=== PATIENT | female | born 1955 | race Caucasian/White ===

== ENCOUNTER 2016-09-08 06:02 | Emergency (ER) | payer OTHER ==
--- NOTE | 2016-09-08 09:53 | ED ORDER SUMMARY ---
..... Patient: ML DALY OrderSheet [facility] VisitID: [id number] [place] [address] 61y, F Registration Date/Time: 09/08/2016 ORDER SHEET Weight: 105.2 kg Allergies: Dilaudid, Sulfa Drugs GENERAL ORDERS: CBC w Diff Urgent (07:09/08/2016 Lyle Hardy) (Ack 7:16 LNations ER Tech1) (7:28 JSanders R.N.) CMP Urgent (07:09/08/2016 Lyle Hardy) (Ack 7:16 LNations ER Tech1) (7:28 LOLISanders R.N.) UA-Culture if indicated Urgent (07:09/08/2016 Lyle Hardy) (Ack 7:16 LNations ER Tech1) (8:54 LOLISanders R.N.) EKG - ER Stat (09:23 09/08/2016 Kathrine Hardy) (9:29 RKaruga) MEDICATION ORDERS: IV FLUIDS: IV NS : initial bolus none -, then 1000 mL/hr for X1 (NOW) (07:01 09/08/2016 Lyle Hardy) (7:28 Shaun R.N.) Zofran IV 4 mg (NOW) (07:09/08/2016 Lyle Hardy) (7:32 LOLISanders R.N.) Ceftriaxone IV 1 gm/50mL (NOW) (09:23 09/08/2016 Kathrine Hardy) (9:41 JSanders R.N.) ORDER SHEET NOTES: [Electronically signed by Sriram Lara Dr. (10:19 09/08/2016)] [Electronically signed by Yazmin Rome R.N. (10:36 09/08/2016)] [Electronically locked/signed by Yazmin Rome R.N. (10:36 09/08/2016)]
--- NOTE | 2016-09-08 09:53 | ED ORDER SUMMARY ---
..... Patient: ML DALY OrderSheet [facility] VisitID: [id number] [place] [address] 61y, F Registration Date/Time: 09/08/2016 ORDER SHEET Weight: 105.2 kg Allergies: Dilaudid, Sulfa Drugs GENERAL ORDERS: CBC w Diff Urgent (07:09/08/2016 Lyle Hardy) (Ack 7:16 LNations ER Tech1) (7:28 JSanders R.N.) CMP Urgent (07:09/08/2016 Lyle Hardy) (Ack 7:16 LNations ER Tech1) (7:28 LOLISanders R.N.) UA-Culture if indicated Urgent (07:09/08/2016 Lyle Hardy) (Ack 7:16 LNations ER Tech1) (8:54 LOLISanders R.N.) EKG - ER Stat (09:23 09/08/2016 Kathrine Hardy) (9:29 RKaruga) MEDICATION ORDERS: IV FLUIDS: IV NS : initial bolus none -, then 1000 mL/hr for X1 (NOW) (07:01 09/08/2016 Lyle Hardy) (7:28 Shaun R.N.) Zofran IV 4 mg (NOW) (07:09/08/2016 Lyle Hardy) (7:32 LOLISanders R.N.) Ceftriaxone IV 1 gm/50mL (NOW) (09:23 09/08/2016 Kathrine Hrady) (9:41 JSanders R.N.) ORDER SHEET NOTES: [Electronically signed by Sriram Lara Dr. (10:19 09/08/2016)] [Electronically signed by Yazmin Rome R.N. (10:36 09/08/2016)] [Electronically locked/signed by Yazmin Rome R.N. (10:36 09/08/2016)]
--- NOTE | 2016-09-08 09:53 | ED CLINICAL REPORT ---
Clinical Report - Physicians/Mid Levels [facility] [address] [place] [address] 09/08/2016 6:02 Patient: ML DALY Time Seen: 06:26; initial patient contact. Arrived- By private vehicle. Historian- patient. HISTORY OF PRESENT ILLNESS Chief Complaint: NEAR-SYNCOPE. Severity described as moderate at its maximum. When seen in the E.D., severity described as mild. Modifying factors- worsened by standing up and changing position. Relieved by rest. Not described as a sense of rotation, movement, falling or confusion. Not described as feeling off balance or weak all over. Described as feeling light-headed and faint. This started last night and is still present. It was gradual in onset and has been intermittent. The patient has had nausea. No vomiting. Similar symptoms previously: None. Recent medical care: Not recently seen/assessed. REVIEW OF SYSTEMS No headache, double vision, weakness, head injury or chest pain. No palpitations, numbness, sore throat, cough or difficulty breathing. No abdominal pain or diarrhea. No difficulty walking. The patient experienced syncope; and has had fever and chills. All systems otherwise negative, except as recorded above. PAST HISTORY ( Hypertension. Hypercholesterolemia. Diabetes Mellitus. SURGERIES: Cholecystectomy. Hysterectomy.). Medications: ASA Oral. Losartan Potassium Oral. Metformin HCl Oral 500 mg, 2x a day. NovoLog Subcutaneous 15 units over 200, 10 units under 200, 2x a day. Tricor Oral, q day. Allergies: Dilaudid. Sulfa Drugs. SOCIAL HISTORY Never smoker. No alcohol use or drug use. ADDITIONAL NOTES The nursing notes have been reviewed. PHYSICAL EXAM Vital Signs: 09/08/2016 06:10 BP: 179/69. HR: 79. RR: 17. O2 saturation: 98%. Temp: 98.4 F. Pain level now: 0/10. Have been reviewed. Hypertensive. Heart rate normal. Respiratory rate normal. Temperature normal. Oxygen saturation normal. Appearance: Alert. No acute distress. Eyes: Pupils equal, round and reactive to light. No nystagmus. Extraocular movements normal. ENT: Normal ENT inspection. Moist mucous membranes. Neck: Normal inspection. CVS: Normal heart rate and rhythm. Heart sounds normal. Respiratory: No respiratory distress. Breath sounds normal. Abdomen: Soft and nontender. No organomegaly. Obese. Skin: Skin warm and dry. Normal skin color. No rash. Extremities: No calf tenderness. No lower extremity edema. Neuro: Alert. Oriented X 3. Mood/affect normal. Speech normal. Cranial nerves normal (as tested). No cerebellar findings. No motor deficit. LABS, X-RAYS, AND EKG EKG: EKG time: (621). No acute process. No acute ischemia. Normal sinus rhythm. Rate: 73. Normal P waves. Normal ALHAJI. Normal QRS complex. Normal axis. Normal ST and T waves, QT and QTc. EKG unchanged when compared with prior EKG. The study has been interpreted contemporaneously by me. The study has been independently viewed by me. The EKG appears to be a good tracing. Interpretation time: 621. Laboratory Tests: UA-Culture if indicated: (NGOZI: 09/08/2016 08:50) ( [facility] 09/08[facility] 09:19) Final results Test Result Flag Units (Reference) URINE COLOR STRAW URINE APPEARANCE SL CLOUDY URINE GLUCOSE NEGATIVE (NEGATIVE) URINE BILIRUBIN NEGATIVE (NEGATIVE) URINE KETONE NEGATIVE (NEGATIVE) URINE SPECIFIC GRAVITY 1.010 (1.010-1.030) URINE PH 5.5 (5.0-8.0) URINE PROTEIN TRACE (NEGATIVE) URINE UROBILINOGEN 0.2 EU/dL (0.2-1.0) URINE NITRITE NEGATIVE (NEGATIVE) URINE BLOOD 3+ (NEGATIVE) URINE LEUK ESTERASE POSITIVE (NEGATIVE) URINE RBC 10-25 rbc/hpf (0-1) URINE WBC 15-25 wbc/hpf (0-1) URINE EPITHELIAL CELLS 0-1 EPI/hpf (0-5) URINE BACTERIA MODERATE (2+ TO 3+) (NONE SEEN) URINE COMMENT CULTURE INDICATED URINE CULTURES ARE SET-UP BASED ON THE FOLLOWING CRITERIA:POSITIVE NITRITEPOSITIVE LEUKOCYTE ESTERASEGREATER THAN 10 WHITE BLOOD CELLSMODERATE (2+) OR GREATER BACTERIA CBC w Diff: (NGOZI: 09/08/2016 06:15) ( [facility] 09/08/2016 07:14) Final results Test Result Flag Units (Reference) WHITE BLOOD COUNT 7.5 K/uL (4.5-11.5) RED BLOOD COUNT 4.31 M/uL (4.00-5.20) HEMOGLOBIN 11.9 L gm/dL (12.0-16.0) HEMATOCRIT 35.8 L % (36.0-46.0) MEAN CELL VOLUME 83 fL (80-100) MEAN CORPUSCULAR HGB 28 pg (26-34) MEAN CORPUSCULAR HGB CONC 33 g/dL (31-37) RED CELL DISTRIBUTION WIDTH 15.9 H % (11.6-14.8) PLATELET COUNT 232 K/uL (150-400) NEUTROPHIL % 60.6 % (50-75) LYMPH % 28.7 % (25-40) MONO % 6.7 % (3-14) EOSINOPHIL % 3.6 % (0-4) BASOPHIL % 0.4 % (0-2) CMP: (NGOZI: 09/08/2016 06:15) ( [facility] 09/08/2016 07:31) Final results Test Result Flag Units (Reference) GLUCOSE 211 H mg/dL (70-110) BUN 20 H mg/dL (7-18) CREATININE 1.3 mg/dL (0.6-1.3) Estimated GFR 44.41 mL/min Estimated GFR- 53.82 mL/min Note: Persistent reduction over 3 months in eGFR<60 mL/min/1.73 m2 defines CKD. Patients with eGFR values>=60 mL/min/1.73 m2 may also have CKD if evidence ofpersistent proteinuria. Additional information may be foundat www.kidney.org. SODIUM 140 mmol/L (136-145) POTASSIUM 4.3 mmol/L (3.5-5.1) CHLORIDE 105 mmol/L (98-107) CARBON DIOXIDE 25 mmol/L (21-32) CALCIUM 9.1 mg/dL (8.5-10.1) TOTAL PROTEIN 7.5 g/dL (6.4-8.2) ALBUMIN 3.4 g/dL (3.3-5.0) BILIRUBIN, TOTAL 0.4 mg/dL (0.0-1.0) ALKALINE PHOSPHATASE 97 U/L (46-116) AST (SGOT) 20 U/L (15-37) ALT (SGPT) 25 U/L (12-78) . PROGRESS AND PROCEDURES Course of Care: the patient is a pleasant 61-year-old female presenting for evaluation of near syncope. Patient is also been having subjective fevers and chills. The patient was initially evaluated by Dr. Ramirez. Plan is follow-up on the patient's laboratory studies and reevaluated the patient after medications and fluids have been given. Patient's workup was remarkable for positive urinalysis. Patient with positive bacteria as well as red blood cells ( Mild anemia that is not the cause for the patient's symptoms today) and white blood cells. Patient's also positive for leuk esterase. Because the patient's symptoms and lack of other findings on patient's workup in the emergency depa, patient's condition today likely due to urinary tract infection. Rest the patient's laboratory studies are otherwise unremarkable. EKG as well as complete blood cell countand other electrolytes are otherwise unremarkable. prior to patient's departure from the emergency department she was reevaluated by myself. patient is resting in bed comfortably. Repeat examination continues to be benign. Patient is up-to-date on plan of care is also diagnosis here in the emergency department including return precautions, home care, and follow-up. All questions have been answered. The patient expressed understanding of these instructions and was agreeable to them. Disposition: Discharged. Condition: good. CLINICAL IMPRESSION 09/08/2016 09:42 BP: 152/65. HR: 70. RR: 18. O2 saturation: 100%. Pain level now: 2/10. Near syncope .12 lead EKG performed. (acute). Oxygen saturation normal. Essential hypertension. Acute urinary tract infection with hematuria. INSTRUCTIONS Off work today, tomorrow. Off school today, tomorrow. Warnings: GENERAL WARNINGS: Return or contact your physician immediately if your condition worsens or changes unexpectedly, if not improving as expected, or if other problems arise. SPECIFICALLY, return if you develop chest pain, fluttering sensation in your chest, lightheadedness, fainting, numbness, weakness or extreme fatigue. Your Current Medications: CONTINUE TAKING THE FOLLOWING MEDICATIONS: ASA Oral. Losartan Potassium Oral. Metformin HCl Oral : 500 mg 2x a day. NovoLog Subcutaneous : 15 units over 200, 10 units under 200 2x a day. Tricor Oral : q day. Prescription Medications: Keflex 500 mg: take 1 capsule orally every 8 hours for 5 days. No refill. Substitution is permissible. (Disp 15 caps) Follow-up: Return to the emergency department as needed. Follow up with your doctor in three days. Reason for referral: recheck today's concerns. Summary of care provided to patient via paper. Screening today revealed the patient's blood pressure to be in the normal range. The patient should follow up with a primary care provider for blood pressure management. Understanding of the discharge instructions verbalized by patient. (Electronically signed by Sriram Lara Dr. 09/08/2016 10:19)
--- NOTE | 2016-09-08 09:53 | ED NURSING NOTES ---
Clinical Report - Nurses [facility] [address] [place] [address] 09/08/2016 6:02 [id number] Triage time 06:10. Acuity: LEVEL 3. Chief Complaint: DIZZINESS. JOSE COMA SCORE: Jose Coma Scale: 15- eyes open spontaneously (4); best verbal response- oriented x 4 (5); best motor response- obeys commands (6). --06:14 TonyaB, R.N. 06:10 09/08/16. BP: 179/69. HR: 79. RR: 17. O2 saturation: 98%. Temp: 98.4 F. Pain level now: 0/10. --06:14 TonyaB, R.N. Weight: 105.2 kg. Height/Length: 64 inches. BMI: 39.8. --06:13 TonyaB, R.N. Medications Metformin HCl Oral 500 mg, 2x a day. NovoLog Subcutaneous 15 units over 200, 10 units under 200, 2x a day. Tricor Oral, q day. --06:12 TonyaB, R.N. Losartan Potassium Oral. --06:12 TonyaB, R.N. ASA Oral. --06:12 TonyaB, R.N. Allergies Dilaudid. Sulfa Drugs. --06:11 TonyaB, R.N. History Arrived by private vehicle. Historian: patient. Accompanied by family. This started last night. Patient was last known well (2099September 07). 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 PAST MEDICAL HX: Immunizations: up-to-date. SOCIAL HX: Never smoker. No alcohol use or drug use. No infectious disease exposure. SELF HARM ASSESSMENT: A self harm assessment was performed. The patient answered "no" to the question "Have you recently felt down, depressed, or hopeless?", "Have you noticed less interest or pleasure in doing things?", "Do you have thoughts of harming or killing yourself?", "Are you here because you tried to hurt yourself?", "Have you ever tried to hurt yourself before today?", "Have you recently had thoughts about harming or killing others?" and "Do you have any dangerous items in your possession?". FALL RISK ASSESSMENT: Fall risk assessment completed. No fall risk identified. NUTRITIONAL RISK ASSESSMENT: The nutritional risk assessment revealed no deficiencies. FUNCTIONAL ASSESSMENT: Functional assessment: no impairments noted. LEARNING NEEDS ASSESSMENT: The learning needs assessment revealed no barriers. SKIN INTEGRITY ASSESSMENT: Skin integrity risk assessment completed. No skin integrity risk identified. --06:14 Brian Castro PROBLEMS: Hypertension. Hypercholesterolemia. Diabetes Mellitus. --06:13 Caryl Castro. ADDITIONAL SURGERIES: Cholecystectomy. Hysterectomy. --06:13 Caryl Castro. Interventions ID band on patient. To treatment room. --06:14 Brian Castro PHYSICAL ASSESSMENT GENERAL / NEURO / PSYCH: Oriented X 4. Appears in no acute distress. Alert. Speech within normal limits. ( pt states she feels dizzy with walking). HEENT: No facial asymmetry noted. Pupils equal, round and reactive to light. RESPIRATORY: Breath sounds within normal limits. Respirations not labored. CVS: Normal sinus rhythm noted. Capillary refill less than 2 seconds. GI / : Abdomen soft and nontender. SKIN: Skin is warm and dry. --06:15 Brian Castro NURSING PROGRESS NOTES 06:15 09/08/2016 Site #1 started prior to arrival by EMS via IV in the right antecubital space with an 20g angiocath; one attempt. Blood drawn: rainbow set. Labeled in the presence of the patient and sent to the lab. Saline lock flushed. --06:15 Brian Castro Cardiac rhythm: normal sinus rhythm. --06:16 Brian Castro NIH STROKE SCALE: NIH Stroke Scale: score 0. Level of Consciousness: alert (0). LOC Questions: both (0). LOC Commands: both (0). Best gaze: normal (0). Visual field loss: none (0). Facial palsy: normal (0). Motor arm: no drift right arm (0) and no drift left arm (0). Motor leg: no drift right leg (0) and no drift left leg (0). Limb ataxia: none (0). Sensory loss: none (0). Aphasia: none (0). Dysarthria: normal (0). Extinction and inattention: none (0). --06: Brian Castro Monitoring of patient in place. Patient gowned. Patient identifiers checked. Call light placed in reach. Side rails up x 2. Bed placed in lowest position. Brakes of bed on. --: Brian Castro EKG time: (06:23). EKG was performed by a nurse and shown to the ED physician. --06:23 Brian Castro 07:15 09/08/16. BP: 148/70 (regular adult cuff) taken on the left arm, via an automated monitor, while lying. HR: 72. --07:19 Brittany Gaona 07:17 09/08/16. BP: 168/74 (regular adult cuff) taken on the left arm, via an automated monitor, while sitting. HR: 74. --07:22 Brittany Gaona 07:22 09/08/16. BP: 170/67 (regular adult cuff) taken on the left arm, via an automated monitor, while standing. HR: 83 (regular). Additional comments: Pt reported feeling "fuzzy" while and right after standing up and was unsteady on her feet. Tech had to hold on to her for balance. . --07:25 Brittany Gaona 07:28 09/08/2016 Started bag #1 1000 mL IV Fluids IV NS (Saline); bolus of 1000 mL over 1 hour(s) then at 1000 mL/hr over 1 hour(s) via site #1 via IV pump. Allergies verified and confirmed 5 rights. IV patency established. IV site checked: no pain, redness, or swelling. IV flushed thoroughly pre- and post-medication administration. --07:28 Yazmin Rome R.N. 07:32 09/08/2016 Zofran (Ondansetron HCl) IVP 4 mg given over 2 minute(s) via site #1. Allergies verified and confirmed 5 rights. IV patency established. IV site checked: no pain, redness, or swelling. IV flushed thoroughly pre- and post-medication administration. IVP given by RN. --07:32 Yazmin Rome R.N. Care transferred and report received (Cira FLEMING). --07:37 Yazmin Rome R.N. 07:37 09/08/16. BP: 157/62 (regular adult cuff) taken on the left arm, while sitting. HR: 65. RR: 18 (regular). O2 saturation: 100% on room air. Temp: 98.2 F (oral). Pain level now: 0/10. --07:39 Yazmin Rome R.N. ( Patient feeling a little nauseated, Zofran given, she is tired and would like to sleep for awhile, warm blanket given, nothing further needed. She will try to give a UA soon.). --07:39 Yazmin Rome R.N. ( Patient doing well, nausea comes and goes now.). --08:34 Yazmin Rome R.N. 08:33 09/08/16. BP: 137/57 (regular adult cuff) taken on the left arm, while lying. HR: 65. RR: 18 (regular). O2 saturation: 100% on room air. Pain level now: 0/10. --08:34 Yazmin Rome R.N. 08:34 09/08/2016 Zofran IVP Response: pain is improving. Symptoms have improved the patient feels better. --08:34 Yazmin Rome R.N. 08:35 09/08/2016 IV Fluids IV NS Discontinued: bag #1 completed. Total amount infused: 1000 mL. IV patency established. IV site checked: no pain, redness, or swelling. IV flushed thoroughly. --08:35 Yazmin Rome R.N. ( assisted pt. to restroom.). --08:46 Celeste Soria ER Tech1 ( Patient went to use restroom and was observed clutching onto the room door, I went to help her and she says her legs were weak and she was very dizzy. She had to hurry to the bed to prevent a fall.). --08:59 Yazmin Rome R.N. 09:12 09/08/16. BP: 150/63 (regular adult cuff) taken on the left arm, while sitting. HR: 66. RR: 18 (regular). O2 saturation: 100% on room air. Pain level now: 08/19. Additional comments: ZEPEDA. --09:13 Yazmin Rome R.N. ( Patient getting a little bit of a ZEPEDA 08/19, but doing well other than that). --09:13 Yazmin Rome R.N. 09:41 09/08/2016 Started 1 gm of Ceftriaxone IVPB in bag #1 50 mL; at 100 mL/hr over 30 minute(s) via site #1 via IV pump. Allergies verified and confirmed 5 rights. IV patency established. IV site checked: no pain, redness, or swelling. IV flushed thoroughly pre- and post-medication administration. --09:41 Yazmin Rome R.N. 09:41 09/08/16. BP: 152/65 (regular adult cuff) taken on the left arm, while sitting. HR: 70. RR: 18 (regular). O2 saturation: 100% on room air. Pain level now: 07/22. --09:42 Yazmin Rome R.N. DISPOSITION / DISCHARGE 10:28 09/08/2016 Site #1 removed upon discharge. Bandaid applied. --10:28 Yazmin Rome R.N. Condition at departure: improved. No learning barriers present. Discharge instructions provided and reviewed with the patient. Reviewed medication(s) side effects, precautions and dosing information. Prescription(s) given to the patient. Patient verbalized understanding. Written instructions provided in Serbian. The patient was discharged by the physician. She was discharged home and accompanied by spouse. She left the Emergency Department ambulatory and via private vehicle. Spouse driving. --10:30 Yazmin Rome R.N. 10:25 09/08/16. BP: 150/62 (regular adult cuff) taken on the left arm, while sitting. HR: 70 (regular). RR: 18 (regular). O2 saturation: 100% on room air. Temp: 97.7 F (oral). Pain level now: 010. --10:30 Yazmin Rome R.N. Departure time: 10:35 Sep 08 2016. --10:36 Yazmin Rome R.N. Locked/Released at 09/08/2016 10:36 by Yazmin Rome R.N.
--- NOTE | 2016-09-08 10:36 | ED MED RECONCILIATION SUMMARY ---
Patient: ML DALY Medication Reconciliation Report [facility] VisitID: [id number] [address] [place] [address] 61y, F Registration Date/Time: 09/08/2016 Weight: 105.2 kg Height/Length: 64 in. BMI: 39.8 ALLERGIES: Dilaudid, Sulfa Drugs The patient's Home Medications are listed below: CONTINUE TAKING THE FOLLOWING MEDICATIONS: ASA Oral Losartan Potassium Oral Metformin HCl Oral 500 mg, 2x a day NovoLog Subcutaneous 15 units over 200, 10 units under 200, 2x a day Tricor Oral, q day The source(s) of the original Home Medication information: Not obtained. The following Medications were given to the patient in the Emergency Department: IV NS IV Fluids bolus 1000 mL over 1 hour(s), then 1000 mL/hr, administered: 09/08/2016 7:28:00 AM Zofran [IVP] IVP 4 mg, administered: 09/08/2016 7:32:00 AM Ceftriaxone [IVPB] IVPB bolus 0, then 1 gm 100 mL/hr, administered: 09/08/2016 9:41:00 AM The following Medications were prescribed to the patient: Keflex 500 mg: take 1 capsule orally every 8 hours for 5 days. No refill. Substitution is permissible.(Disp 15 caps) -- Sriram Lara Dr.
--- NOTE | 2016-09-08 10:36 | ED MAR SUMMARY ---
..... Medication Administration Record [facility] [address] [place] [address] Patient: ML DLAY Visit ID: [id number] 61y, F Weight: 105.2 kg Height/Length: 64 in BMI: 39.8 ALLERGIES: Dilaudid, Sulfa Drugs Start 07:28 09/08/2016 Yazmin Rome R.N., Stop 08:35 09/08/2016 Yazmin Rome R.N. Medication Administered: IV NS (SALINE), Dose: IV Fluids over 1 hour(s), Rate: 1000 mL/hr, Bolus: 1000 mL over 1 hour(s), Dispensed: 1000 mL bag, Site: #1 right AC. Medication Ordered: IV NS : initial bolus none -, then 1000 mL/hr for X1 (NOW). Given 07:32 09/08/2016 Yazmin Rome R.N. Medication Administered: ZOFRAN [IVP] (ONDANSETRON HCL), Dose: 4 mg IVP over 2 minute(s), Site: #1 right AC. Medication Ordered: Zofran IV 4 mg (NOW). Start 09:41 09/08/2016 Yazmin Rome R.N. Medication Administered: CEFTRIAXONE [IVPB], Dose: 1 gm IVPB over 30 minute(s), Rate: 100 mL/hr, Dispensed: 50 mL bag, Site: #1 right AC. Medication Ordered: Ceftriaxone IV 1 gm/50mL (NOW).
--- NOTE | 2016-09-08 10:36 | ED MED RECONCILIATION SUMMARY ---
Patient: ML DALY Medication Reconciliation Report [facility] VisitID: [id number] [address] [place] [address] 61y, F Registration Date/Time: 09/08/2016 Weight: 105.2 kg Height/Length: 64 in. BMI: 39.8 ALLERGIES: Dilaudid, Sulfa Drugs The patient's Home Medications are listed below: CONTINUE TAKING THE FOLLOWING MEDICATIONS: ASA Oral Losartan Potassium Oral Metformin HCl Oral 500 mg, 2x a day NovoLog Subcutaneous 15 units over 200, 10 units under 200, 2x a day Tricor Oral, q day The source(s) of the original Home Medication information: Not obtained. The following Medications were given to the patient in the Emergency Department: IV NS IV Fluids bolus 1000 mL over 1 hour(s), then 1000 mL/hr, administered: 09/08/2016 7:28:00 AM Zofran [IVP] IVP 4 mg, administered: 09/08/2016 7:32:00 AM Ceftriaxone [IVPB] IVPB bolus 0, then 1 gm 100 mL/hr, administered: 09/08/2016 9:41:00 AM The following Medications were prescribed to the patient: Keflex 500 mg: take 1 capsule orally every 8 hours for 5 days. No refill. Substitution is permissible.(Disp 15 caps) -- Sriram Lara Dr.
--- NOTE | 2016-09-08 10:36 | ED MAR SUMMARY ---
..... Medication Administration Record [facility] [address] [place] [address] Patient: ML DALY Visit ID: [id number] 61y, F Weight: 105.2 kg Height/Length: 64 in BMI: 39.8 ALLERGIES: Dilaudid, Sulfa Drugs Start 07:28 09/08/2016 Yazmin Rome R.N., Stop 08:35 09/08/2016 Yazmin Rome R.N. Medication Administered: IV NS (SALINE), Dose: IV Fluids over 1 hour(s), Rate: 1000 mL/hr, Bolus: 1000 mL over 1 hour(s), Dispensed: 1000 mL bag, Site: #1 right AC. Medication Ordered: IV NS : initial bolus none -, then 1000 mL/hr for X1 (NOW). Given 07:32 09/08/2016 Yazmin Rome R.N. Medication Administered: ZOFRAN [IVP] (ONDANSETRON HCL), Dose: 4 mg IVP over 2 minute(s), Site: #1 right AC. Medication Ordered: Zofran IV 4 mg (NOW). Start 09:41 09/08/2016 Yazmin Rome R.N. Medication Administered: CEFTRIAXONE [IVPB], Dose: 1 gm IVPB over 30 minute(s), Rate: 100 mL/hr, Dispensed: 50 mL bag, Site: #1 right AC. Medication Ordered: Ceftriaxone IV 1 gm/50mL (NOW).
--- NOTE | 2016-09-08 10:36 | ED DISCHARGE INSTRUCTIONS ---
Patient: ML DALY General Instructions [facility] VisitID: [id number] [place] [address] 61y, F Registration Date/Time: 09/08/2016 09/08/2016 09:42 BP: 152/65. HR: 70. RR: 18. O2 saturation: 100%. Pain level now: 2/10. Near syncope .12 lead EKG performed. (acute). Oxygen saturation normal. Essential hypertension. Acute urinary tract infection with hematuria. INSTRUCTIONS Off work today, tomorrow. Off school today, tomorrow. Warnings: GENERAL WARNINGS: Return or contact your physician immediately if your condition worsens or changes unexpectedly, if not improving as expected, or if other problems arise. SPECIFICALLY, return if you develop chest pain, fluttering sensation in your chest, lightheadedness, fainting, numbness, weakness or extreme fatigue. Your Current Medications: CONTINUE TAKING THE FOLLOWING MEDICATIONS: ASA Oral. Losartan Potassium Oral. Metformin HCl Oral : 500 mg 2x a day. NovoLog Subcutaneous : 15 units over 200, 10 units under 200 2x a day. Tricor Oral : q day. Prescription Medications: Keflex 500 mg: take 1 capsule orally every 8 hours for 5 days. No refill. Substitution is permissible. (Disp 15 caps) Follow-up: Return to the emergency department as needed. Follow up with your doctor in three days. Reason for referral: recheck today's concerns. Summary of care provided to patient via paper. Screening today revealed the patient's blood pressure to be in the normal range. The patient should follow up with a primary care provider for blood pressure management. Understanding of the discharge instructions verbalized by patient. ADDITIONAL INFORMATION High Blood Pressure --Established High Blood Pressure (Hypertension) is a chronic disease. The cause is unknown in most cases. It can usually be controlled with lifestyle changes and/or medicines. Symptoms of high blood pressure may include headache, dizziness, visual changes, chest pain and shortness of breath. Sometimes it causes no symptoms at all. However, even if there are no symptoms, untreated high blood pressure increases the risk of heart attack, also known as acute myocardial infarction, or AMI, and stroke. It is a serious health risk and should not be ignored. A normal blood pressure is 120/80 or less. The first (top) number is the "systolic" pressure. The second (bottom) number is the "diastolic" pressure. Hypertension exists when either the top number is 140 or higher, OR the bottom number is 90 or higher on repeated measurements. Home Care: All patients with high blood pressure should do the following to lower their pressure. If you are on medicines, then these methods may reduce or eliminate your need for medicines in the future. Begin a weight loss program if you are overweight. Reduce your salt intake. Avoid high salt foods (olives, pickles, smoked meats, salted potato chips, etc.). Do not add salt to your food at the table. Use only small amounts of salt when cooking. Begin an exercise program. Discuss with your doctor what type of exercise program would be best for you. It doesn't have to be difficult. Even brisk walking for 20 minutes three times a week is a good form of exercise. Avoid medicines which contain heart stimulants. This includes many cold and sinus decongestant pills and sprays as well as diet pills. Check the warnings about hypertension on the label. Stimulants such as amphetamine or cocaine could be lethal for someone with hypertension. Never take these. Limit your caffeine intake or switch to caffeine-free products. Stop smoking. If you are a long-time smoker, this can be hard. Enroll in a stop-smoking program to improve your chance of success. Learning how to handle stress better is an important part of any program to lower blood pressure. Learn about relaxation methods such as meditation, yoga or biofeedback. If medicines were prescribed, take them exactly as directed. Missing doses may cause your blood pressure get out of control. Consider buying an automatic blood pressure machine (available at most pharmacies). Use this to monitor your blood pressure at home and report the results to your doctor. Follow Up: Regular visits to your own physician for blood pressure checks and medicine adjustment is an important part of your care. Make a follow-up appointment as directed by our staff. Get Prompt Medical Attention if any of the following occur: Chest pain or shortness of breath Severe headache Throbbing or rushing sound in the ears Nosebleed Sudden severe abdominal pain Extreme drowsiness, confusion or fainting Dizziness or vertigo (dizziness with spinning sensation) Weakness of an arm or leg or one side of the face Difficulty with speech or vision Near-Fainting:Uncertain Cause Fainting (syncope) is a temporary loss of consciousness ("passing out"). It occurs when blood flow to the brain is reduced. Near-fainting ("near-syncope") is like fainting, but you do not fully "pass out." The common minor causes of near fainting include sudden fear, pain, emotional stress, overexertion, or quickly standing up after sitting or lying for a long time. The more serious causes for near fainting are due to either a very slow or very fast heart beat, dehydration, anemia, blood loss, problems related to the heart, or taking too much high blood pressure medicine. The exact cause of your episode is not certain. More tests may be required. Therefore, it is important that you follow up with your doctor as advised. Home Care: 1) Rest today. Resume your normal activities as soon as you are feeling back to normal. 2) If you become light-headed or dizzy, lie down right away or sit with your head between your knees. 3) Because we do not know the exact cause of your near fainting spell, another spell could occur without warning. Therefore, do not drive a car or use dangerous equipment. D o not take a bath alone (use a shower instead). Do not swim alone. You can resume these activities when your doctor says that you are no longer in danger of having a near fainting spell. 4) Stay well hydrated by drinking enough fluid each day. Follow Up with your doctor as instructed. Get Prompt Medical Attention if any of the following occur: -- Another fainting spell occurs, and it is not explained by the common causes listed above -- Chest, arm, neck, jaw, back or abdominal pain -- Shortness of breath -- Weakness, tingling or numbness in one side of the face, one arm or leg -- Slurred speech, confusion, trouble walking or seeing -- Seizure -- Blood in vomit, stools (black or red color) -- (In women) unexpected vaginal bleeding Bladder Infection,Female (Adult) A bladder infection ("cystitis" or "UTI") usually causes a constant urge to urinate and a burning when passing urine. Urine may be cloudy, smelly or dark. There may be pain in the lower abdomen. A bladder infection occurs when bacteria from the vaginal area enter the bladder opening (urethra). This can occur from sexual intercourse, wearing tight clothing, dehydration and other factors. Home Care: Drink lots of fluids (at least 6-8 glasses a day, unless you must restrict fluids for other medical reasons). This will force the medicine into your urinary system and flush the bacteria out of your body. Avoid sexual intercourse until your symptoms are gone. Avoid caffeine, alcohol and spicy foods. These can irritate the bladder. A bladder infection is treated with antibiotics. You may also be given Pyridium (generic = phenazopyridine) to reduce the burning sensation. This medicine will cause your urine to become a bright orange color. The orange urine may stain clothing. You may wear a pad or panty-liner to protect clothing. Preventing Future Infections: Always wipe from front to back after a bowel movement. Keep the genital area clean and dry. Drink plenty of fluids each day to avoid dehydration. Both sexual partners should wash before intercourse. Urinate right after intercourse to flush out the bladder. Wear cotton underwear and cotton-lined panty hose; avoid tight-fitting pants. If you are on control pills and are having frequent bladder infections, discuss with your doctor. Follow Up: Return to this facility or see your doctor if ALL symptoms are not gone after three days of treatment. Get Prompt Medical Attention if any of the following occur: Fever of 100.4F (38C) or higher, or as directed by your healthcare provider No improvement by the third day of treatment Increasing back or abdominal pain Repeated vomiting; unable to keep medicine down Weakness, dizziness or fainting Vaginal discharge Pain, redness or swelling in the labia (outer vaginal area) Blood In The Urine Blood in the urine ("hematuria") has many possible causes. If it occurs after an injury (such as a car accident or fall), it is most often a sign of bruising to the kidney or bladder. Common medical causes of blood in the urine include urinary tract infection, kidney stone, inflammation, tumors, or certain other diseases of the kidney or bladder. Menstruation can cause blood to appear in the urine sample, although it is not coming from the urinary tract. If only a trace amount of blood is present, it will show up on the urine test, even though the urine may be yellow and not pink or red. This may occur with any of the above conditions, as well as heavy exercise or high fever. In this case, your doctor may want to repeat the urine test on another day. This will show if the blood is still present. If so, then other tests can be done to find out the cause. Home Care: If your urine does not appear bloody (pink, brown or red) then you do not need to restrict your activity in any way. If you can see blood in your urine, rest and avoid heavy exertion until your next exam. Do not use aspirin or anti-inflammatory medicine like ibuprofen (Motrin, Advil) or naproxen (Naprosyn, Aleve). These thin the blood and may increase bleeding. Follow Up with your doctor or as advised by our staff. If you were injured and had blood in your urine, you should have a repeat urine test in 1-2 days. Contact your doctor or return to this facility for this test. [NOTE: A radiologist will review any X-rays that were taken. We will notify you of any new findings that may affect your care.] Get Prompt Medical Attention if any of the following occur: Bright red blood or blood clots in the urine (if a new symptom) Weakness, dizziness or fainting New groin, abdominal or back pain Fever of 100.4F (38C) or higher, or as directed by your healthcare provider Repeated vomiting Bleeding from nose, gums or easy bruising Cephalexin Monohydrate Oral tablet What is this medicine? CEPHALEXIN (sef a LORI in) is a cephalosporin antibiotic. It is used to treat certain kinds of bacterial infections It will not work for colds, flu, or other viral infections. How should I use this medicine? Take this medicine by mouth with a full glass of water. Follow the directions on the prescription label. This medicine can be taken with or without food. Take your medicine at regular intervals. Do not take your medicine more often than directed. Take all of your medicine as directed even if you think you are better. Do not skip doses or stop your medicine early. Talk to your boarding room fixer regarding the use of this medicine in children. While this drug may be prescribed for selected conditions, precautions do apply. What side effects may I notice from receiving this medicine? Side effects that you should report to your doctor or health healthcare network pricing consultant as soon as possible: allergic reactions like skin rash, itching or hives, swelling of the face, lips, or tongue breathing problems pain or trouble passing urine redness, blistering, peeling or loosening of the skin, including inside the mouth severe or watery diarrhea unusually weak or tired yellowing of the eyes, skin Side effects that usually do not require medical attention (report to your doctor or health healthcare network pricing consultant if they continue or are bothersome): gas or heartburn genital or anal irritation headache joint or muscle pain nausea, vomiting What may interact with this medicine? probenecid some other antibiotics What if I miss a dose? If you miss a dose, take it as soon as you can. If it is almost time for your next dose, take only that dose. Do not take double or extra doses. There should be at least 4 to 6 hours between doses. Where should I keep my medicine? Keep out of the reach of children. Store at room temperature between 59 and 86 degrees F (15 and 30 degrees C). Throw away any unused medicine after the expiration date. What should I tell my health care provider before I take this medicine? They need to know if you have any of these conditions: kidney disease stomach or intestine problems, especially colitis an unusual or allergic reaction to cephalexin, other cephalosporins, penicillins, other antibiotics, medicines, foods, dyes or preservatives or trying to get breast-feeding What should I watch for while using this medicine? Tell your doctor or health healthcare network pricing consultant if your symptoms do not begin to improve in a few days. Do not treat diarrhea with over the counter products. Contact your doctor if you have diarrhea that lasts more than 2 days or if it is severe and watery. If you have diabetes, you may get a false-positive result for sugar in your urine. Check with your doctor or health healthcare network pricing consultant. You have been given the following additional information: Hypertension, Established Near Syncope, Unknown Bladder Infection, Female (Adult) Hematuria Cephalexin Monohydrate Oral tablet Off work today, tomorrow. Off school today, tomorrow. (Electronically signed by Sriram Lara Dr. 09/08/2016 10:19)
== END 2016-09-08 10:35 | disposition home or self-care (01) ==
LOC: ED SRH 06:02
DX: N39.0 Urinary tract infection, site not specified (principal); R31.9 Hematuria, unspecified; R55 Syncope and collapse; I10 Essential (primary) hypertension; E11.9 Type 2 diabetes mellitus without complications; Z79.84 Long term (current) use of oral hypoglycemic drugs; Z79.4 Long term (current) use of insulin; Z88.5 Allergy status to narcotic agent; Z88.2 Allergy status to sulfonamides
CPT/HCPCS: 90004; 90100; 90469; 95059